=== PATIENT | male | born 1950 | race Caucasian/White ===

== ENCOUNTER 2018-06-25 09:58 | Inpatient (IN) | END 2018-07-04 10:50 | disposition home or self-care (01) | DRG 234 ==

== ENCOUNTER 2019-02-13 13:06 | Emergency (ER) | payer BC ==
[~2019-02-13] VITALS: Ht 167.6 cm; Wt 110.0 kg
[~2019-02-13 13:06] MED LIST: AMLO-147 PO; ASPI-817 PO; ATOR40TA68 PO; CEPH250S33 PO; CLOP75TA19 PO; DOCU-216 PO; HYDR-3670 PO; METO-448 PO; NITR0.4T32 SL; TAMS0.4C2 PO
[2019-02-13 13:17] VITALS: BP 135/82; PULSE 98; RESP 16; Ht 167.6 cm; Wt 110.0 kg
--- NOTE | 2019-02-13 16:47 | ERD ---
ER Documentation Chief Complaint Chief Complaint ACUTE LOW BACK PAIN WITH DIFFICULTY WALKING HPI 68-year-old male with history of hypertension and coronary artery disease, presents to the emergency department, complaining of low back pain after bending over and lifting something heavy yesterday. The patient denies distal weakness, numbness or tingling. No fever or chills, no rashes, no incontinence sharp ROS All systems reviewed and are negative except as per history of present illness. Medications Home Meds Active Scripts Acetaminophen* (Tylenol*) 325 Mg Tablet, 2 TAB PO Q8 PRN for PAIN AND OR ELEVATED TEMP, #20 TAB Prov:HARRIET CORDERO MD 02/13/19 Hydrocodone/Acetaminophen (Cypress 5-325 Tablet) 1 Each Tablet, 1 TAB PO BID PRN for PAIN, #10 TAB Prov:HARRIET CORDERO MD 02/13/19 Baclofen* (Baclofen*) 10 Mg Tablet, 10 MG PO QHS for 10 Days, #10 TAB Prov:HARRIET CORDERO MD 02/13/19 Nitroglycerin* (Nitroglycerin* SL) 0.4 Mg Tab.subl, 0.4 MG SL Q5MIN PRN for CHEST PAIN for 30 Days, BOTTLE Prov:LISA DAVIS 07/03/18 Cephalexin* (Cephalexin* Susp) 250 Mg/5 Ml Susp.recon, 500 MG PO Q8 for 7 Days, #1 BOTTLE Prov:LISA DAVIS 07/03/18 Metoprolol Tartrate* (Lopressor*) 25 Mg Tab, 25 MG PO BID for 30 Days, TAB Prov:LISA DAVIS 07/03/18 Hydralazine Hcl* (Hydralazine Hcl*) 10 Mg Tablet, 10 MG PO Q6 PRN for SBP ABOVE 160 for 30 Days, TAB Prov:LISA DAVIS 07/03/18 Docusate Sodium (Dok) 100 Mg Capsule, 100 MG PO BID PRN for CONSTIPATION for 15 Days, CAP Prov:LISA DAVIS 07/03/18 Reported Medications Clopidogrel Bisulfate* (Clopidogrel Bisulfate*) 75 Mg Tablet, 75 MG PO DAILY, #30 TAB 06/25/18 Amlodipine Besylate* (Amlodipine Besylate*) 10 Mg Tablet, 10 MG PO DAILY, #30 TAB 06/25/18 Aspirin* (Aspirin* EC) 81 Mg Tablet.dr, 81 MG PO DAILY, TAB 06/25/18 Atorvastatin* (Atorvastatin*) 40 Mg Tablet, 40 MG PO QHS, #30 TAB 06/25/18 Tamsulosin Hcl* (Tamsulosin Hcl*) 0.4 Mg Cap.er.24h, 0.4 MG PO HS, CAP 06/25/18 Allergies Allergies: Coded Allergies: No Known Allergy (Unverified , 02/13/19) PMhx/Soc History of Surgery: Yes (PTCA STENT, open heart sx) Anesthesia Reaction: No Hx Neurological Disorder: No Hx Respiratory Disorders: No Hx Cardiac Disorders: Yes (HTN,NH) Hx Psychiatric Problems: No Hx Miscellaneous Medical Probl: Yes (1 kidney (r.)) Hx Alcohol Use: No Hx Substance Use: No Hx Tobacco Use: No Physical Exam Vitals Vital Signs Date Temp Pulse Resp B/P (MAP) Pulse Ox O2 O2 Flow FiO2 Time Delivery Rate 02/13/19 99.0 98 16 135/82 97 13:17 (99) Physical Exam Patient is in no acute distress, vital signs stable. Alert and fully oriented. EYES: PERRLA, EOMI, Sclera and conjunctiva appear normal. EARS: Canals clear, tympanic membranes WNL THROAT: Normal oropharynx. NECK: Supple, No lymphadenopathy. Full ROM without pain or tenderness. HEART: RRR, no rubs, murmurs, clicks or gallops. LUNGS: Clear to auscultation. ABDOMEN: Soft, non-tender without masses or hepatosplenomegaly. EXTREMITIES: No edema bilaterally. BACK: Normal inspection, no deformity, decreased range of motion for lateral rotation and flexion. No vertebral tenderness, bilateral lower muscle spasm. NEURO: Cranial nerves grossly intact, no motor or sensory deficit Results 24 hrs Current Medications Medications Dose Sig/Steven Start Time Status Last (Trade) Ordered Route PRN Stop Time Admin Dose Reason Admin Ketorolac 15 mg ONCE STAT 02/13/19 DC 02/13/19 Tromethamine IM 17:02 17:11 (Toradol) 02/13/19 17:04 Procedures/MDM At the time of discharge, patient nontoxic, ambulating, vital signs stable, no gross neurologic deficit. differential diagnosis include but not limited to: lumbar sprain/strain, sciatica, herniated disk, UTI less likely pyelo, kidney stone. Neurovascular exam grossly intact. no clinical findings suggestive of acute infectious process, no acute deformity, no edema, no rashes. Physical examination and clinical presentation consistent most likely with acute on chronic back pain with sciatica. During the ED course the patient received treatment with Toradol IM presenting overall improvement of the symptoms. Results and clinical impression discussed with the patient who agrees with management. The patient is stable to be treated outpatient and will be discharged home with recommendations and close monitoring The patient was instructed to follow up with the primary care provider in the next 48h. If symptoms persist, worsen or new symptoms develop, then patient should return to the ED immediately. Instructions explained and given to patient with acknowledgment and demonstrated understanding. Disclaimer: Inadvertent spelling and grammatical errors are likely due to EHR/dictation software use and do not reflect on the overall quality of patient care. Also, please note that the electronic time recorded on this note does not necessarily reflect the actual time of the patient encounter. Departure Diagnosis: Primary Impression: Acute myofascial strain of lumbar region Condition: Stable Additional Instructions: Thank you very much for allowing us to participate in your care. [place] [facility] [place] primary care doctor TOMORROW for an appointment during the next 2-4 days and bring all the information and medications prescribed. Have prescriptions filled and follow precisely the directions on the label. If the symptoms get worse and your provider is unavailable, return to the Emergency Department immediately. HARRIET CORDERO MD Feb 13, 2019 16:47
[2019-02-13] MEDS ORDERED: KETOROLAC 15 MG INJ IM STA (17:02)
[2019-02-13] MEDS ORDERED: HYDR-4011 PO (17:55)
[2019-02-13] MEDS ORDERED: BACL10TA PO (17:55)
[2019-02-13] MEDS ORDERED: ACET325T33 PO (17:55)
== END 2019-02-13 18:42 | disposition home or self-care (01) ==
LOC: FTE 13:06
DX: S39.012A Strain of muscle, fascia and tendon of lower back, initial encounter (principal); I10 Essential (primary) hypertension; I25.10 Atherosclerotic heart disease of native coronary artery without angina pectoris; I25.2 Old myocardial infarction; X50.0XXA Overexertion from strenuous movement or load, initial encounter; Y92.9 Unspecified place or not applicable; Z79.01 Long term (current) use of anticoagulants; Z79.82 Long term (current) use of aspirin; Z98.61 Coronary angioplasty status
CPT/HCPCS: 96372; J1885; Z7502